=== PATIENT | male | born 1970 | race Caucasian/White ===

== ENCOUNTER 2019-03-16 17:38 | Emergency (ER) | payer OTHER ==
[~2019-03-16] VITALS: Ht 177.8 cm; Wt 97.1 kg
[2019-03-16] MEDS ORDERED: BACTRIM DS TAB1 EACH PO (18:54)
[2019-03-16] MEDS ORDERED: KEFLEX500 M1 PO (18:54)
[2019-03-16 19:15] VITALS: BP 155/78
== END 2019-03-16 19:17 | disposition home or self-care (01) ==
LOC: M.ERS 17:38
DX: L03.115 Cellulitis of right lower limb (principal); Z87.442 Personal history of urinary calculi